=== PATIENT | female | born 1980 | race Hispanic/Latino ===

== ENCOUNTER 2020-01-04 15:50 | Emergency (ER) | payer MEDICAID, SELFPAY ==
[2020-01-04 15:00] VITALS: BMI 30.2
[2020-01-04 15:51] VITALS: BP 131/79; PULSE 96; RESP 16; TEMP 36.8; O2SAT 97; BMI 30.9
--- NOTE | 2020-01-04 16:21 | US_ITS ---
STUDY: ABDOMINAL ULTRASOUND - RIGHT UPPER QUADRANT REASON FOR VISIT: Female, 39 years old ABN PAIN AND FEVER TECHNIQUE: Ultrasound evaluation of the right upper quadrant was performed with real-time and static saenz-scale imaging. TECHNICAL QUALITY: Adequate. COMPARISON: None. FINDINGS: Liver: The liver measures 15.2 cm. There is normal echogenicity of the liver. The bile ducts are within normal limits. There is hepatic color flow. The direction of portal flow is hepatopetal. There is no demonstrated mass lesion. Gallbladder: Normal distended gallbladder. The gallbladder wall measures 2 mm. There is a negative sonographic Regan''s sign. There is no pericholecystic fluid. There are no gallstones. Common Bile Duct (C.B.D.): The common bile duct measures 5 mm. Pancreas: Normal size of the head, body and tail of the pancreas. There is normal echogenicity of the pancreas. There is no demonstrated pancreatic mass or cyst. Right Kidney: Normal size of the right kidney. The right kidney measures 11.5 cm. Normal renal cortex. The right cortex measures 1.6 cm. There is no demonstrated renal mass or cyst. There is no right hydronephrosis. US/Abdomen Limited IMPRESSION: Normal right upper quadrant ultrasound examination. Electronically Signed: Rahul Brown MD at 17:37 EDT Tel , Service support ,
--- NOTE | 2020-01-04 16:21 | ED.VIS.GEN ---
History of Present Illness Chief Complaint: Abd Pain Informant: Patient Narrative: Patient presents to the emergency department with upper abdominal pain nausea vomiting. Symptoms began yesterday and pain is been constant. She points to her epigastrium right upper quadrant and right flank as the area that hurts. She had nausea vomiting last night none today but she is only had water. She reports a fever last night. She notes some intermittent diarrhea. She went to urgent care and they sent her to the emergency department. Patient is not had these symptoms before. She cannot find a position of comfort. She denies any dysuria or urinary frequency or hematuria. Past Medical History - Allergies and Home Meds Allergies/Adverse Reactions: Allergies No Known Allergies Allergy (Unverified 01/04/20 15:50) Primary Care Physician: NOT,DEFINED [NON-STAFF] - Smoking Status: Never smoker Review of Systems General: Reports: Fever. Denies: Chills, Sweats Eyes: Denies: Visual changes - bilaterally, Diplopia ENT: Denies: Rhinorrhea, Sore throat Cardiovascular: Denies: Chest pain, Palpitations Respiratory: Denies: Dyspnea, Cough, Dyspnea on exertion Gastrointestinal: Reports: Abdominal pain, Nausea, Vomiting, Diarrhea. Denies: Melena, Hematochezia Genitourinary: Denies: Dysuria, Hematuria, Frequency Musculoskeletal: Denies: Back pain, Extremity Pain Skin: Denies: Rash, Wounds Neurological: Denies: Headache, Weakness, Numbness Physical Exam Vital Signs/Narrative: Vital Signs Temp Pulse Resp BP Pulse Ox 01/04/20 15:51 98.3 F 96 16 131/79 H 97 Inital Vital Signs reviewed: Yes General: Well nourished, Well developed, No Acute Distress Head: Normocephalic, Atraumatic Eyes: Perrl, EOMI ENT: Moist mucous membranes, No rhinorrhea Neck: Supple, Nontender Cardiovascular: Regular rate, Regular rhythm, No murmurs Respiratory: No distress, CTA bilaterally, Chest nontender Abdomen: Soft, Nondistended, Normal bowel sounds, Tender, Guarding - Tender palpation right upper quadrant and epigastrium. There is guarding. Back: Nontender, Normal Inspection Extremities: Nontender, No edema Skin: Normal color, No rash Neurological: Alert, Oriented x3, Cranial nerves II-XII grossly intact, Normal Strength, Normal Sensation Psychological: Normal affect, Normal Mood Diagnostic/Tx/Re-eval Clinical Impression(s) from Imaging Studies Abdomen Ultrasound 01/04/20 16:21 IMPRESSION: Normal right upper quadrant ultrasound examination. Electronically Signed: Rahul Brown MD at 17:37 EDT Tel , Service support , Abdomen/Pelvis CT 01/04/20 18:02 IMPRESSION: Abnormal submucosal thickening of the ascending, and proximal transverse colon consistent with a diffuse colitis. This is likely infectious or inflammatory, pseudomembranous colitis can have this appearance. There is a minimal amount of pericolonic inflammatory stranding without perforation or abscess 1 cm simple pelvic cyst, no specific follow-up needed No free intraperitoneal fluid, air, or suspicious adenopathy Normal appendix visualized Electronically Signed: Jacobo Jonas MD at 19:24 EDT , Service support , Laboratory Last Values WBC 9.6 K/mm3 (4.4-11.0) 01/04/20 16:45 RBC 4.30 M/mm3 (4.2-5.4) 01/04/20 16:45 Hgb 10.9 g/dL (12.0-15.0) L 01/04/20 16:45 Hct 33.9 % (37-47) L 01/04/20 16:45 MCV 78.8 fL (81-99) L 01/04/20 16:45 MCH 25.3 pg (27.0-32.0) L 01/04/20 16:45 MCHC 32.2 g/dL (32-36) 01/04/20 16:45 RDW Std Deviation 48.9 fl (35.1-43.9) H 01/04/20 16:45 RDW Coeff of Elvin 17.2 % (11.6-14.6) H 01/04/20 16:45 Plt Count 249 K/mm3 (150-450) 01/04/20 16:45 MPV 12.8 fl (6.2-12.0) H 01/04/20 16:45 Immature Gran % (Auto) 0.400 % (0.0-0.9) 01/04/20 16:45 Neut % (Auto) 84.3 % (47-70) H 01/04/20 16:45 Lymph % (Auto) 11.4 % (19-41) L 01/04/20 16:45 [place] % (Auto) 3.8 % (0-10) 01/04/20 16:45 Eos % (Auto) 0.0 % (0-5) 01/04/20 16:45 Baso % (Auto) 0.1 % (0-1) 01/04/20 16:45 Absolute Neuts (auto) 8.1 X10^3/uL (2.0-7.7) H 01/04/20 16:45 Absolute Lymphs (auto) 1.09 X10^3/uL (0.83-4.51) 01/04/20 16:45 Nucleated RBC % 0 % (0-5) 01/04/20 16:45 Sodium 139 mmol/L (136-145) 01/04/20 16:45 Potassium 3.0 mmol/L (3.5-5.1) L 01/04/20 16:45 Chloride 107 mmol/L (98-107) 01/04/20 16:45 Carbon Dioxide 25.0 mmol/L (21.0-32.0) 01/04/20 16:45 Anion Gap 7 (5-15) 01/04/20 16:45 BUN 14 mg/dL (7-18) 01/04/20 16:45 Creatinine 0.72 mg/dL (0.55-1.02) 01/04/20 16:45 Estim Creat Clear Calc 86.78 ml/min 01/04/20 16:45 Est GFR (MDRD) Af Amer 116 mL/min (>60) 01/04/20 16:45 Est GFR (MDRD) Non-Af 96 mL/min (>60) 01/04/20 16:45 BUN/Creatinine Ratio 19.4 RATIO (10-20) 01/04/20 16:45 Glucose 89 mg/dL (74-106) 01/04/20 16:45 Calcium 8.4 mg/dL (8.5-10.1) L 01/04/20 16:45 Total Bilirubin 0.30 mg/dL (0.20-1.00) 01/04/20 16:45 AST 16 U/L (15-37) 01/04/20 16:45 ALT 20 U/L (13-56) 01/04/20 16:45 Alkaline Phosphatase 102 U/L (45-117) 01/04/20 16:45 Total Protein 7.8 g/dL (6.4-8.2) 01/04/20 16:45 Albumin 3.6 g/dL (3.2-5.0) 01/04/20 16:45 Globulin 4.2 g/dL (2.2-4.2) 01/04/20 16:45 Albumin/Globulin Ratio 0.9 RATIO (0.9-2.4) 01/04/20 16:45 Amylase 44 U/L (25-115) 01/04/20 16:45 Lipase 79 U/L (73-393) 01/04/20 16:45 Serum , Qual NEGATIVE Negative 01/04/20 16:45 Urine Color Yellow (Yellow) 01/04/20 18:18 Urine Clarity Sl. Cloudy (Clear) 01/04/20 18:18 Urine pH 6.0 (5.0 - 8.0) 01/04/20 18:18 Ur Specific [place] 1.015 (1.002-1.030) 01/04/20 18:18 Urine Protein Negative mg/dl (Negative) 01/04/20 18:18 Urine Glucose (UA) Normal mg/dl (Normal) 01/04/20 18:18 Urine Ketones 50 mg/dl (Negative) H 01/04/20 18:18 Urine Occult Blood 25 /ul (Negative) H 01/04/20 18:18 Urine Nitrite Negative (Negative) 01/04/20 18:18 Urine Bilirubin Negative mg/dL (Negative) 01/04/20 18:18 Urine Urobilinogen Normal mg/dl (Normal) 01/04/20 18:18 Ur Leukocyte Esterase Negative /ul (Negative) 01/04/20 18:18 - Medical Decision Making The patient received IV fluids morphine Zofran. Gallbladder ultrasound was negative for pathology. Therefore a CT of the abdomen pelvis was ordered which did demonstrate a colitis with an ileus. Patient was ordered Zosyn. The patient was strongly urged to be admitted but she declined stating that she has family at home that she needs to help care for. Patient was advised her symptoms may be come significantly worse. She has capacity to make this decision and while I disagree with it we will respected and we can attempt to treat her at home. I will write for Cipro and Flagyl as well as Zofran and [place]. She will be given a referral to primary care. ED Disposition - Plan for ED Patient: Disposition: Home or Assisted Living Diagnosis: Colitis, Ileus Prescriptions: Ciprofloxacin [Cipro] 500 mg PO BID #20 tab Prescription Printed metroNIDAZOLE [Flagyl] 500 mg PO Q8H #30 tab Prescription Printed Hydrocodone Bitart/Apap 5-325 [[place] 5MG-325MG] 1 tab PO Q6H PRN PRN 3 Days #12 tab PRN Reason: Pain Prescription Printed Ondansetron [Zofran Odt] 4 mg PO Q6H PRN PRN #14 tab PRN Reason: Nausea Prescription Printed Referrals: Evangelist Thomas MD [STAFF PHYSICIAN] - As soon as possible Additional Instructions: You have a colitis. It is not known exactly what type you have. When the acute infection is over you need to follow-up and will need a colonoscopy to help determine what type you have.. Please see the referral above. If while you are treating yourself at home you are worsening please return to the emergency department. I would recommend staying with a liquid diet for the next several days
[2020-01-04] MEDS: Morphine 4 MG/ML Syringe IV (16:41)
[2020-01-04] MEDS: Ondansetron 4 MG/2 ML Vial IV (16:41)
[2020-01-04] MEDS: 0.9% Normal Saline 1,000 ML 1000 ML IV (16:41)
[2020-01-04 17:26] LABS: ALB/GLOB Ratio 0.9 RATIO (0.9-2.4); AST(SGOT) 16 U/L (15-37); Alanine Aminotransfer ALT/SGPT 20 U/L (13-56); Albumin, Serum 3.6 g/dL (3.2-5.0); Alkaline Phosphatase 102 U/L (45-117); Amylase 44 U/L (25-115); Anion Gap 7 (5-15); BUN 14 mg/dL (7-18); BUN/Creat Ratio 19.4 RATIO (10-20); Calcium,Total 8.4 mg/dL (8.5-10.1); Chloride 107 mmol/L (98-107); Creatinine, Serum 0.72 mg/dL (0.55-1.02); EST Glomerular Filtration Rate 96 mL/min (>60); Est Glom Filt Rate - Afr Amer 116 mL/min (>60); Estimated Creatinine Clearance 86.78 ml/min; Globulin 4.2 g/dL (2.2-4.2); Glucose 89 mg/dL (74-106); Lipase 79 U/L (73-393); Protein, Total 7.8 g/dL (6.4-8.2); Sodium Level 139 mmol/L (136-145)
[2020-01-04 17:48] LABS: Internal QC Validated? YES +Cl - CLEAR BKGD; Pregnancy, Serum, hCG Quali. NEGATIVE Negative
[2020-01-04 17:50] VITALS: BP 125/76; PULSE 89; RESP 18; O2SAT 98
--- NOTE | 2020-01-04 18:02 | CT_ITS ---
STUDY: CT ABDOMEN AND PELVIS WITH CONTRAST REASON FOR EXAM: Female, 39 years old. RIGHT SIDE ABDOMINAL PAIN. N/V, FEVER RADIATION DOSAGE (If Supplied By Facility): CTDIvol = ( 15.04 ) mGy, DLP = ( 1095.38 ) mGycm TECHNIQUE: Transaxial images were obtained from the dome of the diaphragm to the symphysis pubis without oral contrast. IV 100mL Isovue-370 was administered. Sagittal and coronal images were reconstructed. Individualized dose optimization techniques were used for this CT. COMPARISON: None. FINDINGS: The visualized lung bases are unremarkable. The visualized portions of the heart are within normal limits. Liver is unremarkable aside from a 1 cm simple cyst in the right lobe. No specific follow-up needed. Normal gallbladder and extrahepatic biliary system. Normal spleen. Normal pancreas. Normal bilateral adrenal glands. Normal right kidney. Normal left kidney. Normal visualized stomach. Multiple nondistended fluid-filled small bowel loops are noted cyst with ileus. There is marked abnormal submucosal thickening of the ascending, and proximal half of the transverse colon consistent with a diffuse colitis. This is likely infectious or inflammatory, pseudomembranous colitis can have this appearance. There is a minimal amount of pericolonic inflammatory stranding but no perforation or abscess is noted. The distal half of the colon is unremarkable. The appendix is visualized and appears normal. Appendix best seen on coronal recon image 54 Normal abdominal aorta. Normal inferior vena cava. Normal retroperitoneum. Normal urinary bladder. Normal-appearing uterus. No suspicious cystic mass or free fluid in the cul-de-sac. Normal abdominal wall. Normal osseous structures. CT/Abdomen/Pelvis W IV Cont ONLY IMPRESSION: Abnormal submucosal thickening of the ascending, and proximal transverse colon consistent with a diffuse colitis. This is likely infectious or inflammatory, pseudomembranous colitis can have this appearance. There is a minimal amount of pericolonic inflammatory stranding without perforation or abscess 1 cm simple pelvic cyst, no specific follow-up needed No free intraperitoneal fluid, air, or suspicious adenopathy Normal appendix visualized Electronically Signed: Jacobo Jonas MD at 19:24 EDT , Service support ,
[2020-01-04 18:09] LABS: Absolute Lymphocyte Count 1.09 X10^3/uL (0.83-4.51); Absolute Neutrophil Count 8.1 X10^3/uL (2.0-7.7); Basophil# 0.01 X10^3/uL; Basophil% 0.1 % (0-1); Hematocrit 33.9 % (37-47); Hemoglobin 10.9 g/dL (12.0-15.0); Lymphocyte # 1.09 X10^3/ul (4.0); Lymphocyte % 11.4 % (19-41); Mean Corp Hgb Conc 32.2 g/dL (32-36); Mean Corpuscular Hgb 25.3 pg (27.0-32.0); Mean Corpuscular Volume 78.8 fL (81-99); Mean Platelet Vol. 12.8 fl (6.2-12.0); Monocyte# 0.36 X10^3/uL; Monocyte% 3.8 % (0-10); NRBC Flagged by Analyzer 0 % (0-5); Neutrophil # 8.08 X10^3/uL (2.7-7.7); Neutrophil % 84.3 % (47-70); Platelet Count 249 K/mm3 (150-450); RBC Distribution Width CV 17.2 % (11.6-14.6); RBC Distribution Width SD 48.9 fl (35.1-43.9); White Blood Count 9.6 K/mm3 (4.4-11.0)
[2020-01-04] MEDS: 0.9% Normal Saline 1,000 ML 125 ML IV (18:21)
[2020-01-04 18:40] LABS: Color, Urine Yellow (Yellow); Glucose, Dipstick Normal (Normal); Ketone-Dipstick 50 mg/dl (Negative); Leukocyte Esterase-Dipstick Negative /ul (Negative); Nitrite-Dipstick Negative (Negative); Occult Blood-Urine 25 /ul (Negative); Protein-Dipstick Negative (Negative); Specific Gravity, Urine 1.015 (1.002-1.030); Urine Bilirubin Dipstick Negative (Negative); Urine Clarity Sl. Cloudy (Clear); Urine Urobilinogen Normal (Normal)
--- NOTE | 2020-01-04 19:29 | ED.RN ---
Called lab for urine results. Tech said they were really behind but she will check on the results.
[2020-01-04 19:53] VITALS: BP 134/84; PULSE 100; RESP 16; TEMP 37.2; O2SAT 100
[2020-01-04 19:56] LABS: Bacteria 1+ /hpf (None Seen); Mucous, Urine 3+ /hpf (<or=2+); Red Blood Cells-Urine 0-5 SEEN /hpf (0-5); Squamous Epithelial Cells - UA 5-10 SEEN /hpf (5-10); White Blood Cells 0-5 SEEN /hpf (0-5)
[2020-01-04 20:55] VITALS: RESP 16
== END 2020-01-04 20:56 | disposition home or self-care (01) ==
PROVIDERS: Emergency Provider Emergency Medicine
DX: K56.7 Ileus, unspecified (principal); K52.9 Noninfective gastroenteritis and colitis, unspecified
CPT/HCPCS: 74177; 76705; 80053; 81001; 82150; 83690; 84703; 85025; 96361; 96365; 96375; 99283; J7030; Q9967; A4216; J2405

== ENCOUNTER 2023-01-21 12:55 | Emergency (ER) | payer OTHER, MEDICAID, SELFPAY ==
[2023-01-21 12:59] VITALS: BP 132/79; PULSE 76; RESP 14; TEMP 37; O2SAT 98; BMI 35.9
--- NOTE | 2023-01-21 13:16 | EX.ED.GENINJ ---
HPI <SASHA Gerber - Last Filed: 01/21/23 13:54> History of Present Illness Chief Complaint: Laceration Narrative Narrative: Patient presenting today with a laceration to her right forearm that she got this afternoon at work. 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 She is unsure when her last tetanus was updated. She denies any other injury. Tetanus Immunization: Unknown PFSH <SASHA Gerber - Last Filed: 01/21/23 13:54> PFSH Medical History no medical history Allergy/AdvReac Type Severity Reaction Status Date / Time No Known Allergies Allergy Verified 01/21/23 12:59 Family History no significant family his Surgical History no surgical history Social History Smoking Status: Current every day smoker tobacco type: cigarettes ROS <SASHA Gerber - Last Filed: 01/21/23 13:54> ROS ED Constitutional Constitutional ED: Denies chills or fever(s) Cardiovascular Cardiovascular: Denies chest pain Respiratory/Chest Respiratory/Chest: Denies cough or dyspnea Gastrointestinal Gastrointestinal: Denies abdominal pain, nausea or vomiting Musculoskeletal Musculoskeletal: Denies arthralgias or myalgias Integumentary Reports laceration Neurologic Neurologic: Denies paresthesias or weakness EXAM <SASHA Gerber - Last Filed: 01/21/23 13:54> Physical Exam Const Vital Signs: 01/21/23 12:59 Temperature 98.6 F Temperature Source Temporal Pulse Rate 76 Respiratory Rate 14 Blood Pressure 132/79 H Blood Pressure Mean 96 Pulse Ox 98 Oxygen Delivery Method Room Air Positive well nourished, well developed and no apparent distress General Appearance ED: well developed HEENT Reports normocephalic and head/scalp atraumatic Mouth ED: Yes moist mucous membranes normal Eyes PERRL and EOMs intact bilaterally Neck full ROM and supple Chest Wall inspection of chest normal Resp normal respiratory effort and clear to auscultation bilaterally Cardio regular rate and regular rhythm GI soft to palpation, non-tender, non-distended and no masses Back/Spine normal ROM and normal to inspection Extremity normal to inspection and full ROM Neuro oriented x3, CN's II-XII intact bilaterally, moves all extremities, no focal motor deficits and no sensory deficits noted Sensorium / Orientation: awake and alert Psych mental status grossly normal and thought process normal Skin Skin Narrative: 2 cm subcutaneous laceration to the distal ulnar portion of the right forearm Rashes: No rashes noted <Dr. Delvin Blount DO - Last Filed: 01/21/23 15:41> Physical Exam Const Vital Signs: 01/21/23 12:59 Temperature 98.6 F Temperature Source Temporal Pulse Rate 76 Respiratory Rate 14 Blood Pressure 132/79 H Blood Pressure Mean 96 Pulse Ox 98 Oxygen Delivery Method Room Air PROC <SASHA Gerber - Last Filed: 01/21/23 13:54> Procedures Lacerations Laceration: Length: 0.79 in Depth: Sub Q Shape: Linear Prep: Chlorhexadine Laceration repair: Irrigated, Lidocaine and Skin sutures Suture Information: Ethilon, Simple and 5-0 MDM <SASHA Gerber - Last Filed: 01/21/23 13:54> [facility] Narrative Medical decision making narrative: Bilateral patient has a 2 cm linear laceration to her right forearm, subcutaneous, 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 She is well-appearing and in no acute distress, vitals unremarkable. She is Tristanian-speaking and I did use an administrative resident service for this visit. Laceration was repaired with sutures, it was copiously irrigated, explored, and cleaned. Wound was bandaged with bacitracin ointment. Patient tolerated procedure well. Tetanus updated. I have educated her on signs of infection to look out for and reasons to return. She is to have stitches removed in 7 days. Patient understands plan and all questions have been answered. She will be discharged home in stable condition and is comfortable with plan. <Dr. 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 She is well-appearing and in no acute distress, vitals unremarkable. She is Tristanian-speaking and I did use an administrative resident service for this visit. Laceration was repaired with sutures, it was copiously irrigated, explored, and cleaned. Wound was bandaged with bacitracin ointment. Patient tolerated procedure well. Tetanus updated. I have educated her on signs of infection to look out for and reasons to return. She is to have stitches removed in 7 days. Patient understands plan and all questions have been answered. She will be discharged home in stable condition and is comfortable with plan. Attending note: Patient seen and evaluated with white work cleaner. I perform my own [id number] evaluation. I agree with the plan of work-up. Laceration right forearm at work. Accidentally with a knife while feeding animals. No anticoagulation medicines. Manager Of Corporate service was used in a standard. This was confirmed. Tetanus unknown. Exam with 2 cm laceration ulnar aspect forearm subcu exposure. No gross foreign bodies. There is no active bleeding. Patient tetanus updated wound closed by white work cleaner. Outpatient follow-up given. Discharge Plan Triage Chief Complaint: Laceration ED Midlevel Provider: Valentina Delgado ED Provider: Delvin Blount Dx/Rx/DC Orders Clinical Impression: Laceration, Tetanus toxoid vaccination administered at current visit Instructions: ED Laceration: All Closures Primary Care Provider: Care Physician,No Primary Activity Restrictions/Additional Instructions: Wash area every day with soap and water and keep covered with a bandage when you are at work. Have stitches removed in 7 days. Return for any signs of infection. Print Language: Tristanian Disposition Disposition: Home, Self Care Discharge Date/Time: 01/21/23 14:26
[2023-01-21] MEDS: Lidocaine 1% (20 ml mdv) 20 ML Vial 10 ML INFILT (13:24)
[2023-01-21] MEDS: Diphth,Pertuss(Acell),Tet Vac 0.5 ML Vial IM (13:24)
== END 2023-01-21 14:26 | disposition home or self-care (01) ==
PROVIDERS: Emergency Provider Emergency Medicine; Visit Provider Emergency Medicine
DX: S51.811A Laceration without foreign body of right forearm, initial encounter (principal); F17.210 Nicotine dependence, cigarettes, uncomplicated; Z23 Encounter for immunization; W26.0XXA Contact with knife, initial encounter; Y99.0 Civilian activity done for income or pay
CPT/HCPCS: 12001; 90471; 90715; 99285